=== PATIENT | female | born 1960 | race Caucasian/White ===

== ENCOUNTER 2017-01-04 14:30 | Emergency (ER) | payer MEDICAID ==
[2017-01-04 15:02] VITALS: BP 154/104; PULSE 73; RESP 16; TEMP 98.3; O2SAT 97
--- NOTE | 2017-01-04 15:21 | UCPHY ---
H & P Time Seen by Provider: 01/04/17 14:58 Patient Type: New HPI/ROS: Over the past 24 hours this patient reports right breast redness and discomfort that is minimal at baseline and moderate with movement. She reports no other associated symptoms. She had mastitis 2 times as a younger woman while breast- feeding in the past. She had a normal mammogram 15 years ago. She has not taken any medication for the discomfort. She notes no exacerbating or alleviating factors other than the tenderness and increased pain with movement. ROS: No fevers chills or other constitutional symptoms. She notes no discharge from the associated nipple. She has no recent trauma to that breast. No nausea or vomiting and 7 point ROS is otherwise negative. Past Medical/Surgical History: Previous mastitis Previous normal mammogram 15 years ago. Inverted nipple on the affected side is baseline Smoking Status: Unknown if ever smoked Physical Exam: Physical Exam Vital signs are normal. General: No acute distress Eyes: Pupils equal and react to light. Extraocular motions are intact. Lungs: No respiratory distress. Breast exam: Patient has inverted nipple on the right side with erythema and mild [place] edema between 12 and 3 o'clock with mild tenderness. There is also warmth to touch. No fluctuance. No drainage from the nipple. Left breast is normal. Cardiac: Brisk capillary refill is intact throughout. Skin: Confluent erythema on the affected breast as noted above in breast exam no other rash. Neuro: Alert and oriented x3 with no sensorimotor deficits. Differential diagnosis: Mastitis, doubt breast cancer, doubt abscess Constitutional: Initial Vital Signs Temperature (C) 36.8 C 01/04/17 14:50 Heart Rate 73 01/04/17 14:50 Respiratory Rate 16 01/04/17 14:50 Blood Pressure 154/104 H 01/04/17 14:50 O2 Sat (%) 97 01/04/17 14:50 O2 Delivery Mode Room Air Allergies/Adverse Reactions: fentanyl Allergy (Verified 01/04/17 14:58) Home Medications: Medication Instructions Recorded Cephalexin [Keflex (*)] 500 mg PO QID #40 cap 01/04/17 MDM/Departure - [facility] ED Course/Re-evaluation: Patient with an isolated mastitis without constitutional symptoms. I think that she will do well on oral medications. Is immunocompetent and otherwise healthy - Depart Disposition: Home, Routine, Self-Care Clinical Impression: Mastitis, right, acute Condition: Good Instructions: Mastitis (ED) Additional Instructions: Diagnosis: Mastitis Plan: Apply warm packs 3 times a day more until symptoms resolve Keflex antibiotic as prescribed Follow up with Dr. Christy, primary care physician of primary doc of your choice for any ongoing symptoms. Return here or to the emergency department for any significant worsening despite the treatment plan Prescriptions: Cephalexin [Keflex (*)] 500 mg PO QID #40 cap Referrals: NONE *PRIMARY CARE P,. [Primary Care Provider] - As per Instructions Rose Christy MD [Medical Doctor] - As per Instructions - PQRS PQRS Measurement: NA
== END 2017-01-04 15:36 | disposition home or self-care (01) ==
LOC: CED 14:30
DX: N61.0 Mastitis without abscess (principal)
CPT/HCPCS: 99203-PO; G0463-PO